=== PATIENT | female | born 1940 | race Caucasian/White ===

== ENCOUNTER 2020-06-23 15:00 | Emergency (ER) | payer MEDICARE, OTHER, SELFPAY ==
--- NOTE | ~2020-06-23 | CT_ITS ---
EXAMINATION: CT brain wo con DATE: 06/23/2020 17:31 INDICATION: Left facial weakness. TECHNIQUE: Computed tomography (CT) of the head was performed without intravenous contrast. The mA wa s adjusted according to patient size. Iterative reconstruction technique was employed. The dose-lengt h product was 605.33 mGy-cm. COMPARISON: None FINDINGS: There is no intracranial hemorrhage, acute infarction, or abnormal intracranial mass lesion . There are scattered areas of low attenuation in the cerebral white matter, which is within normal l imits for the patient's age. The ventricles are normal in size. The paranasal sinuses are clear. Ther e are likely changes of ocular lens replacement surgeries. The mastoid air cells are normal. IMPRESSION: 1. Normal aging brain. Reviewed, dictated and finalized at location A. IMPRESSION: 1. Normal aging brain.
--- NOTE | 2020-06-23 15:00 | PC.NURSE ---
Pt arrives via [facility] from [facility]. Per EMS they were called for CVA like symptoms. They gave the pt ativan po prior to EMS arrival. Pt's daughter meets pt on arrival to intake. Pt A/O to normal status. Pt has shaking but is able to control it with commands. 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 No facial drooping or slurred speech noted.
--- NOTE | 2020-06-23 15:32 | PC.NURSE ---
Awaiting triage, pt in waiting room at present time, needing to use the restroom. Note pt is no longer has shaking, states she feels better. Amb to bathroom with one assist. VEE x4. Pt ambulatory back to wheelchair without difficulty.
[2020-06-23 15:45] VITALS: BP 145/75; PULSE 68; RESP 17; TEMP 36.3; O2SAT 97
[2020-06-23 16:37] VITALS: RESP 17; O2SAT 99
--- NOTE | 2020-06-23 16:46 | ED.GENADULT ---
HPI - General Adult General Chief complaint: Unspecified Stated complaint: left sided numbness/?anxiety Time Seen by Provider: 06/23/20 16:46 History of Present Illness HPI narrative: She reports that she was feeling anxious this morning. She went back to bed. When a nurse came to check on her they noted some left sided facial droop and possibly left arm weakness. She was also having some confusion prior to arrival, although has sice resolved. She has reportedly had anxiety attacks for quite some time. The physical symptoms seem to be getting more severe. The patient says that she is feeling fine and has no complaints at this time. Related Data Home Medications Medication Instructions Recorded Confirmed albuterol sulfate [Ventolin HFA] INHALATION 06/23/20 06/23/20 alprazolam 06/23/20 budesonide-formoterol [Symbicort] INHALATION 06/23/20 fluticasone propionate INTRANASAL 06/23/20 montelukast mg 06/23/20 quetiapine 06/23/20 tiotropium bromide [Spiriva INHALATION 06/23/20 Respimat] trazodone 06/23/20 venlafaxine mg PO 06/23/20 Allergies Allergy/AdvReac Type Severity Reaction Status Date / Time No Known Allergies Allergy Verified 06/23/20 15:49 Review of Systems Review of Systems: All systems reviewed & are unremarkable except as noted in HPI and below Constitutional: Constitutional: Denies fever(s) Eyes: Eyes: Denies change in vision Cardiovascular: Cardiovascular: Denies chest pain Respiratory: Respiratory: Denies dyspnea Gastrointestinal: Gastrointestinal: Denies abdominal pain and Denies nausea Genitourinary: Genitourinary: Denies nocturia and Denies dysuria Neurologic: Reports confusion, Reports dizziness and Denies headache(s) [facility] Past Medical History Medical History (Updated 06/24/20 @ 00:00 by Background Daemon) Anxiety Bipolar 1 disorder Social History Social History Gender identity (if verbalized by the patient): Female Exam Const: General: healthy appearing, no acute distress and alert Orientation/consciousness: patient oriented x3 HENMT: Head: normal to inspection Eyes: Pupils: Equal, round and reactive pupils present EOM: EOMs intact bilaterally Other: mild left sided ptosis Resp: Effort & Inspection: normal respiratory effort Auscultation: clear to auscultation bilaterally Cardio: Rate: regular rate Rhythm: regular rhythm GI: GI Palp: Yes Soft to palpation and No Tenderness to palpation present (GI) Skin: General skin exam: normal color Neuro: General: patient oriented x3, moves all extremities and no focal motor deficits Speech: normal speech Other: mild left ptosis. Irregular shaking upper extremity movmeents on exam. Extinguish when exam is stopped. Extrem: General: normal to inspection Course Vital Signs Vital signs: Vital Signs Temperature 36.3 C L 06/23/20 15:45 Pulse Rate 68 06/23/20 15:45 Respiratory Rate 17 06/23/20 15:45 Blood Pressure 145/75 H 06/23/20 15:45 Pulse Oximetry 97 06/23/20 15:45 Temperature 36.7 C 06/23/20 19:24 Pulse Rate 71 06/23/20 19:24 Respiratory Rate 16 06/23/20 19:24 Blood Pressure 136/69 06/23/20 19:24 Pulse Oximetry 100 06/23/20 19:24 Medical Decision Making MDM Narrative Medical decision making narrative: Neuro exam not entirely normal, but nonfocal and dynamic. I do not suspect a stroke at this time. I feel that her symptoms likely are all related to the UTI. Medical Records Medical records reviewed: Yes I reviewed the patient's medical records. Vital Signs Vital Signs: Vital Signs Temperature 36.3 C L 06/23/20 15:45 Pulse Rate 68 06/23/20 15:45 Respiratory Rate 06/23/20 15:45 Blood Pressure 145/75 H 06/23/20 15:45 Pulse Oximetry 97 06/23/20 15:45 Temperature 36.7 C 06/23/20 19:24 Pulse Rate 71 06/23/20 19:24 Respiratory Rate 16 06/23/20 19:24 Blood Pressure 136/69 06/23/20 19:24 Pulse Oximetry 100 06/23/20 19:24 Lab
--- NOTE | 2020-06-23 17:19 | PC.NURSE ---
Pt to CT scan via WC w/ daughter.
[2020-06-23 17:53] LABS: Basophils Percent Auto 0.5 % (0.2-1.2); Eosinophils Absolute Auto 0.1 K/mm3 (0-0.3); Eosinophils Percent Auto 1.7 % (0-4.4); Hematocrit 40.4 % (37.0-47.0); Hemoglobin 13.3 g/dL (12.0-15.0); Immature Granulocyte Absolute 0.02 K/mm3 (0.00-0.031); Immature Granulocyte Percent A 0.3 % (0-0.5); Lymphocytes Absolute Auto 1.64 K/mm3 (0.9-3.2); Lymphocytes Percent Auto 27.3 % (18.3-44.2); Mean Corpuscular HGB Conc 32.9 g/dl (32-36); Mean Corpuscular Hemoglobin 30.8 pg (26-34); Mean Corpuscular Volume 93.5 fl (80-100); Mean Platelet Volume 10.1 fl (7.4-10.4); Monocytes Absolute Auto 0.5 K/mm3 (0.1-0.6); Monocytes Percent Auto 7.7 % (2.6-8.5); Neutrophils Absolute Auto 3.8 K/mm3 (1.3-6.7); Neutrophils Percent Auto 62.5 % (45.5-73.1); Platelet Count Result 223 k/mm3 (150-375); Red Blood Count 4.32 M/mm3 (4.2-5.4); Red Cell Distribution Width 12.8 % (11.5-14.5)
[2020-06-23 18:02] LABS: Prothrombin Time 13.1 Seconds (11.1-14.7)
[2020-06-23 18:03] LABS: Partial Thromboplastin Time 25.6 SECONDS (22.3-36.8)
[2020-06-23 18:04] LABS: Alanine Aminotransferase 17 U/L (4-35); Albumin Level 4.1 g/dL (3.5-5.1); Alkaline Phosphatase 68 U/L (38-126); Anion Gap 4 mmol/L (8-16); Aspartate Amino Transferase 28 U/L (14-36); Bilirubin,Total 0.4 mg/dL (0.2-1.3); Blood Urea Nitrogen 17 mg/dL (7-17); Calcium 9.5 mg/dL (8.4-10.2); Carbon Dioxide 30 mmol/L (22-30); Chloride 104 mmol/L (98-107); Estimated CRCL calculation 30 ml/min; Estimated Glomerular Filt Rate 48; Glucose 103 mg/dL (65-105); Potassium 4.4 mmol/L (3.4-5.0); Sodium 138 mmol/L (137-145)
[2020-06-23 18:11] VITALS: BP 147/87; PULSE 74; RESP 17; O2SAT 99
[2020-06-23 18:14] LABS: Add Urine Microscopic? YES; Appearance Urine Clear (Clear); Bilirubin Urine Negative (Negative); Blood Urine Negative (Negative); Color Urine Yellow (Yellow); Glucose Urine UA Negative (Negative); Ketones Urine Negative (Negative); Leukocyte Esterase Ur 1+ LEU/UL (Negative); Mucus Urine Rare /lpf; Nitrate Urine Negative (Negative); Protein Urine Negative (Negative); RBC Urine 0-2 /hpf (0-2); Specific Grav Ur 1.006 (1.001-1.035); Urobilinogen Urine Negative mg/dL (<2.0)
[2020-06-23 19:24] VITALS: BP 136/69; PULSE 71; RESP 16; TEMP 36.7; O2SAT 100
== END 2020-06-23 19:32 | disposition home or self-care (01) ==
PROVIDERS: Emergency Provider Emergency Medicine; PCP Physician Assistant
DX: N39.0 Urinary tract infection, site not specified (principal); F41.9 Anxiety disorder, unspecified; F31.9 Bipolar disorder, unspecified
CPT/HCPCS: 36415; 70450; 80053; 81001; 85025; 85610; 85730; 87086; 99284; A9270

== ENCOUNTER 2021-12-24 12:41 | Emergency (ER) | payer MEDICARE, OTHER, SELFPAY ==
--- NOTE | ~2021-12-24 | XR_ITS ---
XR shoulder LT min 2V 12/24/2021 13:22 INDICATION: Left shoulder pain PROCEDURE: 4 views left shoulder COMPARISON: No prior studies for comparison. FINDINGS: Fracture, dislocation or subluxation is not identified. The soft tissues appear within norm al limits. No foreign bodies are identified. IMPRESSION: 1: NO ACUTE BONE OR JOINT ABNORMALITY IDENTIFIED. Reviewed, dictated and finalized at location A.
--- NOTE | ~2021-12-24 | XR_ITS ---
XR tibia fibula LT 2V 12/24/2021 14:03 INDICATION: Left leg pain with trauma PROCEDURE: 2 views left tibia/fibula COMPARISON: No prior studies for comparison. FINDINGS: Fracture, dislocation or subluxation is not identified. The soft tissues appear within norm al limits. No foreign bodies are identified. IMPRESSION: 1: NO ACUTE BONE OR JOINT ABNORMALITY IDENTIFIED. Reviewed, dictated and finalized at location A.
--- NOTE | ~2021-12-24 | XR_ITS ---
[XR ribs LT 2V w CXR 2V ] INDICATION: Left rib pain TECHNIQUE: Frontal projection of the upper left ribs, frontal projection of the lower left ribs, obli que projection of all the left ribs, frontal inspiratory chest x-ray for interpretation. FINDINGS: There are no displaced rib fractures identified. There are no soft tissue abnormality see n. The lungs are clear. IMPRESSION: 1:No acute displaced rib fractures. Reviewed, dictated and finalized at location A.
--- NOTE | ~2021-12-24 | XR_ITS ---
XR ankle LT 2V 12/24/2021 13:22 INDICATION: Left ankle pain PROCEDURE: 4 views left ankle COMPARISON: No prior studies for comparison. FINDINGS: Fracture, dislocation or subluxation is not identified. The soft tissues appear within norm al limits. No foreign bodies are identified. IMPRESSION: 1: NO ACUTE BONE OR JOINT ABNORMALITY IDENTIFIED. Reviewed, dictated and finalized at location A.
[2021-12-24 12:59] VITALS: BP 161/88; PULSE 76; RESP 22; TEMP 36.8; O2SAT 99
--- NOTE | 2021-12-24 13:34 | PC.NURSE ---
EDP Dr. Beltran at [facility].
--- NOTE | 2021-12-24 14:23 | ED.FALL ---
HPI - Fall General Chief Complaint: Fall Stated Complaint: fall, shoulder pain Time Seen by Provider: 12/24/21 13:00 History of Present Illness HPI Narrative: Patient is an 81-year-old female who presents ER status post fall. She was attempting to walk when she felt like she could not lift up her leg and she fell forward landing on her right side. She did not strike her head or lose consciousness. She has some pain over her left chest wall and her left scapula. Patient also reports lower bunn and ankle pain on the left side. No numbness or tingling. Patient is quite anxious and starts to shake and scream when you bring him towards her. There is no deformity noted. Related Data Home Medications Medication Instructions Recorded Confirmed alprazolam 0.25 mg PO TID 12/24/21 budesonide-formoterol [Symbicort] 2 puff INHALATION BID 12/24/21 docusate sodium 100 mg PO BID 12/24/21 fluticasone propionate [Flonase] 2 spray INTRANASAL DAILY 12/24/21 montelukast [Singulair] 10 mg PO DAILY 12/24/21 quetiapine [Seroquel] 100 mg PO DAILY 12/24/21 tiotropium bromide [Spiriva 2 puff INHALATION DAILY 12/24/21 Respimat] trazodone 100 mg PO DAILY 12/24/21 venlafaxine 150 mg PO DAILY 12/24/21 Allergies Allergy/AdvReac Type Severity Reaction Status Date / Time amoxicillin Allergy Unknown Verified 08/26/12 08:43 Review of Systems Review of Systems: All systems reviewed & are unremarkable except as noted in HPI and below Constitutional: Constitutional: Denies chills, Denies fever(s) and Denies weakness Cardiovascular: Cardiovascular: Denies chest pain, Denies rapid heart rate and Denies radiating jaw, neck or arm pain Comments: Chest wall pain Respiratory: Respiratory: Denies cough and Denies dyspnea Gastrointestinal: Gastrointestinal: Denies abdominal pain, Denies nausea and Denies vomiting Musculoskeletal: Musculoskeletal: Reports back pain, Reports arthralgias, Denies joint swelling and Denies muscle cramps Neurologic: Denies syncope, Denies headache(s), Denies focal weakness and Denies numbness ON LICENSE OF [facility] Past Medical History Medical History (Updated 12/24/21 @ 15:18 by José Miguel Beltran MD) Anxiety Surgical History Surgical History (Updated 12/24/21 @ 14:25 by José Miguel Beltran MD) No pertinent past surgical history Social History Social History Smoking status: Never smoker Alcohol intake: current Exam Narrative: GENERAL: Well-appearing, well-nourished, and in no acute distress. HEAD: Normocephalic, atraumatic. ENT: Mucous membranes moist. NECK: Supple. CHEST: Clear to auscultation. No respiratory distress. Tender over left chest wall mid axillary line without crepitus/bruising/abrasion. HEART: Regular rate and rhythm. Normal peripheral pulses. ABDOMEN: Soft, nontender, nondistended. Back: Tender palpation over left scapula without midline tenderness of the T/L-spine. No visual evidence of trauma. EXTREMITIES: Normal range of motion. No edema. Tender palpation to the medial left ankle and lower anterior bunn. SKIN: Warm, dry, no rash. NEURO: Alert and oriented x3. PSYCH: Anxious but otherwise normal thought content.. Course Course Emergency Course: Patient informed of results. No evidence of fracture. Ambulatory without issue. Discharge home. Vital Signs Vital signs: Vital Signs Temperature 98.2 F 12/24/21 12:59 Pulse Rate 76 12/24/21 12:59 Respiratory Rate 22 H 12/24/21 12:59 Blood Pressure 161/88 H 12/24/21 12:59 Pulse Oximetry 99 12/24/21 12:59 Temperature 98.2 F 12/24/21 12:59 Pulse Rate 76 12/24/21 12:59 Respiratory Rate 22 H 12/24/21 12:59 Blood Pressure 161/88 H 12/24/21 12:59 Pulse Oximetry 99 12/24/21 12:59 MDM - Fall Imaging Data Radiologist's impression: ITS Impressions Ankle X-Ray 12/24/21 13:27 IMPRESSION: 1: NO ACUTE BONE OR JOINT ABNORMALITY IDENTIFIED. Shoulder X-Ray 12/24/21 13:28 IMPRESSION: 1: NO ACUTE
[2021-12-24] MEDS: ACETAMINOPHEN 325 MG TABLET 650 MG PO (14:30)
[2021-12-24 15:45] VITALS: BP 145/72; PULSE 78; RESP 18; O2SAT 99
== END 2021-12-24 15:49 ==
PROVIDERS: Emergency Provider Emergency Medicine; PCP Physician Assistant
DX: R07.89 Other chest pain (principal); M79.662 Pain in left lower leg; F41.9 Anxiety disorder, unspecified; W18.39XA Other fall on same level, initial encounter
CPT/HCPCS: 71046; 71100; 73030; 73590; 73600; 99284; A9270

== ENCOUNTER 2023-12-26 14:39 | Outpatient (CLI) | payer MEDICARE, OTHER, SELFPAY ==
--- NOTE | ~2023-12-26 | CT_ITS ---
Clinical Indication: Pulmonary nodule CT Scan of the Chest with Contrast: Technique: Contiguous sections were acquired throughout the chest after intravenous administration of 75 cc of Omnipaque 350. Dose reduction technique was used on this scan by utilizing automated exposu re control and iterative reconstruction technique. The dose-length product (DLP) was 154.48 mGy-cm. Findings: There is no evidence of any significant mediastinal, hilar or axillary lymphadenopathy. No large cent ral pulmonary embolus. There is no evidence of aortic dissection or aneurysm. There is no evidence of pleural or pericardial effusion. There is a 4.5 cm cavitary lesion in the left upper lobe with somewhat thickened wall. There is some peripheral consolidation in the more superior left upper lobe. There is focal consolidation extending towards the hilum. There is underlying moderate to advanced emphysema. There are several subcentimet er pulmonary nodules in the lingula, measuring up to 6 mm. There is a 3 mm right middle lobe pulmonar y nodule. Images through the upper abdomen reveal no abnormalities. Impression: 4.5 cm cavitary lesion left upper lobe. Diagnostic considerations would be cavitary neoplasm versus c avitary pneumonia. Correlate clinically. Small and of postobstructive atelectasis or pneumonia in the left upper lobe. Several subcentimeter pulmonary nodules in the lingula. Findings could reflect infectious process, po st inflammatory change, or metastatic disease. Moderate to advanced emphysema. Reviewed, dictated and finalized at [facility]. Impression: 4.5 cm cavitary lesion left upper lobe. Diagnostic considerations would be cavi tary neoplasm versus cavitary pneumonia. Correlate clinically. Small and of postobstructive atelectasis or pneumonia in the left upper lobe. Several subcentimeter pulmonary nodules in the lingula. Findings could reflect infectious process, post inflammatory change, or metastatic disease. Moderate to advanced emphysema.
[2023-12-26 15:11] LABS: Estimated Glomerular Filt Rate 53
== END 2023-12-26 14:40 ==
PROVIDERS: PCP Physician Assistant; Visit Provider Physician Assistant
DX: R91.8 Other nonspecific abnormal finding of lung field (principal); J43.9 Emphysema, unspecified
CPT/HCPCS: 71260; Q9967

== ENCOUNTER 2024-01-10 09:09 | Outpatient (RCR) | payer MEDICARE, OTHER, SELFPAY | END 2024-04-09 23:59 | disposition home or self-care (01) | LOC: ANHLAB 09:09 | PROVIDERS: PCP Internal Medicine; Visit Provider Internal Medicine Critical Care Medicine | DX: J98.4 Other disorders of lung (principal) | CPT/HCPCS: 87015; 87070; 87102; 87106; 87116; 87118; 87205; 87206 ==

== ENCOUNTER 2024-01-17 10:47 | Outpatient (CLI) | payer MEDICARE, OTHER, SELFPAY ==
[2024-01-21 11:28] LABS: NIL 0.04 IU/mL; Quantiferon TB Plus, 1T NEGATIVE (NEGATIVE); TB2-NIL 0.01 IU/mL
[2024-01-22 13:48] LABS: ANA Cascade Screen NEGATIVE (NEGATIVE)
== END 2024-01-17 10:48 | disposition home or self-care (01) ==
LOC: ANHGOSHLAB 10:49
PROVIDERS: PCP Internal Medicine; Visit Provider Internal Medicine Critical Care Medicine
DX: J98.4 Other disorders of lung (principal); M35.9 Systemic involvement of connective tissue, unspecified
CPT/HCPCS: 36415; 86038; 86225; 86235; 86364; 86480; 86606

== ENCOUNTER 2024-01-28 05:29 | Outpatient (CLI) | payer MEDICARE, OTHER, SELFPAY ==
[2024-01-21 16:12] VITALS: BMI 20.5
--- NOTE | 2024-01-21 16:12 | PC.NURSE ---
Pre Radiology instructions Report to the outpatient sergei blanchard on date __01/28/24___ at time __9:00AM for procedure Time: __11:00AM__ YOU MAY BE MONITORED AT HOSPITAL FOR UP TO 4 HOURS AFTER YOUR PROCEDURE. A visitor will be allowed to accompany the patient into the hospital. You and your visitor will be asked to self-screen and do not enter if you have any COVID symptoms. A mask is OPTIONAL within the hospital. Patients are to have no food or drink 6 hours prior to procedure time Driving will be restricted after the procedure, you must have a person to drive you home. Labs will be drawn in preop area and once reviewed, you will be taken to radiology area for procedure. When the procedure is completed, you will be taken to outpatient where you will be monitored for several hours. You may have one visitor in this area. Other than holding anti-coagulants, patient may take other medication(s) as scheduled. Prior to your appointment date patients are instructed to hold anti-coagulants after discussing with ordering provider to stop. If unable to discontinue anti-coagulants please notify radiologist. ? No aspirin or warfarin (Coumadin) for 7 days prior to the procedure. ? No clopidogrel (Plavix), ticagrelor (Brilinta), prasugrel (Effient) or dabigatran (Pradaxa) for 5 days prior to the procedure. ? No rivaroxaban (Xarelto), apixaban (Eliquis), dipyridamole (Aggrenox or Persantine) or cilostazol (Pletal) for 2 days prior to the procedure. Medications to discontinue per physician: ___NONE Date to take last dose: Please leave all valuables, including medications, at home the day of procedure. The hospital will not accept responsibility for valuables. Wear comfortable, loose fitting clothing.? Follow any additional instructions given to you from ordering provider. Telephone instructions given to ___DAUGHTERBRODERICK and asked if any additional questions and then verbalized understanding. Patient advised to call scheduling provider office or registration scheduling [phone] if any additional questions.
[2024-01-28] VITALS (10 sets, daily range): BP systolic 113–147; BP diastolic 69–86; PULSE 72–90; RESP 16–20; TEMP 36.6; O2SAT 94–100
--- NOTE | ~2024-01-28 | XR_ITS ---
EXAMINATION: XR chest 1V DATE: 01/28/2024 11:41 INDICATION: Status post percutaneous left lung biopsy TECHNIQUE: frontal view of the chest was obtained. COMPARISON: Chest CT dated 12/26/2023 FINDINGS: Again seen is the now biopsied centrally lucent cavitary mass at the left upper lobe. No other airspa ce opacities, pulmonary edema, pleural effusion or pneumothorax. There is increased lucency and some architectural distortion in the upper lung zones consistent with emphysema. The cardiomediastinal vaibhav houette is normal. IMPRESSION: 1. No pneumothorax or pleural effusion post percutaneous biopsy of a cavitary mass in the left upper lobe. Reviewed, dictated and finalized at location A. IMPRESSION: 1. No pneumothorax or pleural effusion post percutaneous biopsy of a cavitary m ass in the left upper lobe.
--- NOTE | ~2024-01-28 | XR_ITS ---
EXAMINATION: XR chest 1V portable DATE: 01/28/2024 12:39 INDICATION: Status post percutaneous left lung biopsy TECHNIQUE: frontal view of the chest was obtained. COMPARISON: Chest radiograph dated 01/28/2024 FINDINGS: Emphysema with increased lucency and architectural distortion at the bilateral upper lung zones. Agai n seen is the biopsied thick-walled cavitary mass in the left upper lung. No other airspace opacities , pulmonary edema, pleural effusion or pneumothorax. Skinfold projects over the lateral left midlung zone. The cardiomediastinal silhouette is normal. IMPRESSION: 1. No pneumothorax or other acute cardiopulmonary disease post percutaneous biopsy of a cavitary left upper lobe mass which is concerning for malignancy. Reviewed, dictated and finalized at location A. IMPRESSION: 1. No pneumothorax or other acute cardiopulmonary disease post percutaneous bio psy of a cavitary left upper lobe mass which is concerning for malignancy.
--- NOTE | ~2024-01-28 | XR_ITS ---
XR chest 1V portable 01/28/2024 14:40 Indication: Post image guided lung biopsy Procedure: AP portable chest Comparison: 01/28/2024 Findings: Cavitary mass reidentified left upper lung. No pneumothorax identified. Right lung clear. T he lungs are hyperinflated which is consistent with, but not diagnostic of chronic obstructive pulmon evans disease. Impression: 1: No pneumothorax identified post procedure. 2: Persistent cavitary mass left upper thorax which may be infectious or neoplastic. Reviewed, dictated and finalized at location B. Impression: 1: No pneumothorax identified post procedure. 2: Persistent cavitary mass left upper thorax which may be infectious or neopla stic.
--- NOTE | ~2024-01-28 | CT_ITS ---
EXAMINATION: CT biopsy lung w/imaging DATE: 01/28/2024 11:48 INDICATION: Cavitary left upper lobe mass TECHNIQUE: The procedure including the risks and benefits was discussed with the patient. Risks discu ssed included infection, approximately 1/20 risk of symptomatic hemorrhage beyond mild hemoptysis, ap proximately 1/3 risk of pneumothorax, and approximately 1/10 risk of pneumothorax severe enough to wa rrant chest tube placement. The patient understood the risks and agreed to proceed. The patient was p laced supine. The skin overlying the infraclavicular anterior left upper chest was prepped and drape d in sterile fashion. Anesthetic was administered with 1% lidocaine subcutaneously. A 19 gauge oute r needle was advanced under CT guidance to the lesion of interest. A 20 gauge core biopsy needle was then used to obtain 4 core biopsy specimens. 10 mm of the patient's own blood was aspirated from her peripheral IV and injected along the biopsy tract during withdrawal of the guide needle. Entry site w as cleaned and dressed. There were no immediate complications. The dose-length product was 200.09 mG y-cm. FINDINGS: CT images demonstrate the outer needle tip adjacent to the thickest portion of the peripher al wall of the 4 cm cavitary left upper lobe mass. IMPRESSION: 1. Successful CT-guided biopsy of a 4 cm cavitary left upper lobe mass. Reviewed, dictated and finalized at location A.
[2024-01-28 09:56] LABS: Mean Platelet Volume 10.5 fl (7.4-10.4); Platelet Count Result 214 k/mm3 (150-375)
[2024-01-28 10:07] LABS: Prothrombin Time 13.8 Seconds (11.1-14.7)
== END 2024-01-28 15:05 | disposition home or self-care (01) ==
PROVIDERS: PCP Internal Medicine; Referring Provider Internal Medicine Critical Care Medicine; Visit Provider Radiology Diagnostic Radiology
PROC: BB24ZZZ Computerized Tomography (CT Scan) of Bilateral Lungs (ICD-10-PCS; CPT 32408; principal; 2024-01-28 11:00)
DX: J98.4 Other disorders of lung (principal); R91.1 Solitary pulmonary nodule
CPT/HCPCS: 32408; 36415; 71045; 85049; 85610; 88305

== ENCOUNTER 2024-02-06 12:46 | Outpatient (CLI) | payer MEDICARE, OTHER, SELFPAY ==
[2024-02-06 13:00] VITALS: PULSE 82; O2SAT 97
[2024-02-06 13:05] VITALS: PULSE 96; O2SAT 92
[2024-02-06 13:15] VITALS: PULSE 83; O2SAT 96
--- NOTE | 2024-02-06 13:34 | HOMEO2EVAL ---
Evaluation was performed at [facility] Home Oxygen Evaluation RC: Home Oxygen (O2) Evaluation Start: 02/06/24 13:32 Freq: Status: Active Protocol: RPE Activity Type Activity Date Activity User E-sign Co-sign Detail Recorded Client Recorded Date Recorded By Document 02/06/24 13:00 MICHELET [email or web address] 02/06/24 13:34 MICHELET Document 02/06/24 13:05 MICHELET [email or web address] 02/06/24 13:34 MICHELET Document 02/06/24 13:15 MICHELET [email or web address] 02/06/24 13:34 MICHELET 02/06/24 02/06/24 02/06/24 13:00 13:05 13:15 Home O2 Evaluation [Oxygen] -Test Phase Resting Exercise Resting -Oxygen Delivery Room Air Room Air Room Air [Pulse Oximetry] -Pulse Oximetry (90-100 %) 97 92 96 [Pulse Rate] -Pulse Rate (60-100 beats/min) 82 96 83 [Exercise] -Ambulation Distance (feet) 600 -Ambulation Distance (meters) 182.87 [Comments] -Home Oxygen Evaluation Comments Pt walked with no aids using railing for stability. No home O2 needed at this time. [Charges] -Evaluation Charges O2 Evaluation by Pulmonary
--- NOTE | 2024-02-06 13:35 | PCRCNOTE ---
Faxed home O2 eval to [facility] office staff
== END 2024-02-06 12:47 | disposition home or self-care (01) ==
LOC: ANHPFT 12:47
PROVIDERS: PCP Internal Medicine; Visit Provider Internal Medicine Critical Care Medicine
DX: J44.9 Chronic obstructive pulmonary disease, unspecified (principal)
CPT/HCPCS: 94618